=== PATIENT | female | born 1965 | race Hispanic/Latino ===

== ENCOUNTER 2017-10-09 14:43 | Emergency (ER) | payer OTHER ==
[2017-10-09 14:43] VITALS: BMI 19.3
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
--- NOTE | 2017-10-09 16:28 | CT ---
PROCEDURE: CT Cervical Spine without contrast HISTORY: Neck pain COMPARISON: None available. TECHNIQUE: Axial computed tomography images were obtained of the cervical spine without the use of intravenous contrast. Coronal and sagittal reformatted images were created and reviewed. Radiation dose: Total exam DLP = 257 mGy-cm. This CT exam was performed using one or more of the following dose reduction techniques: Automated exposure control, adjustment of the mA and/or kV according to patient size, and/or use of iterative reconstruction technique. FINDINGS: VERTEBRAE: No fracture. Normal alignment. No destructive bony lesion. DISCS/SPINAL CANAL/NEURAL FORAMINA: No significant central canal or neural foraminal stenosis. Discs heights are grossly preserved. PARASPINAL SOFT TISSUES: Unremarkable. OTHER FINDINGS: None. IMPRESSION: Unremarkable CT of the cervical spine.
[2017-10-09] MEDS ORDERED: Morphine 4 mg/ml ISec IM STA (17:16)
[2017-10-09 17:44] VITALS: BP 133/79; PULSE 73; RESP 18; TEMP 98; O2SAT 95
== END 2017-10-09 17:33 | disposition home or self-care (01) ==
LOC: ED 14:43
DX: M54.2 Cervicalgia (principal)
CPT/HCPCS: 72125; 96372; 99283; J1885; J2270

== ENCOUNTER 2017-10-16 10:14 | Emergency (ER) | payer OTHER ==
[2017-10-16 10:14] VITALS: BMI 19.3
[2017-10-16 10:35] VITALS: TEMP 97.6
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
[2017-10-16 14:57] VITALS: BP 127/79; PULSE 76; RESP 17; O2SAT 98
== END 2017-10-16 14:56 | disposition home or self-care (01) ==
LOC: ED 10:14
DX: M54.2 Cervicalgia (principal)
CPT/HCPCS: 96374; 96375; 99284; J1100; J1885; J2060; J2405

== ENCOUNTER 2017-11-26 13:07 | Emergency (ER) | payer MEDICAID, OTHER ==
[2017-11-26 13:07] VITALS: BMI 19.3
[2017-11-26 13:26] VITALS: TEMP 98
[2017-11-26] MEDS ORDERED: HYDROmorphone 1 mg/ml ISec IVP STA ×2 (13:39→14:58)
[2017-11-26] MEDS ORDERED: Sodium Chloride 0.9% 500 ML IV STA (13:41)
[2017-11-26] MEDS ORDERED: Famotidine 20mg/50ml 20 MG/50 ML BAG IVPB STA (13:41)
[2017-11-26] MEDS ORDERED: Dexamethasone 4 mg/1 ml IVP STA (13:42)
[2017-11-26 13:44] VITALS: O2SAT 99
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
[2017-11-26 14:09] LABS: BASO # 0.03 K/mm3 (0.0-2.0); BASO % 0.4 % (0.0-3.0); EOS % 0.5 % (1.5-5.0); GRAN # 5.97 (1.4-6.5); GRAN % 72.5 % (50.0-68.0); HEMOGLOBIN 14.4 g/dL (12.0-16.0); LYMPH # 1.8 (1.2-3.4); LYMPH % 22.1 % (22.0-35.0); MEAN CELL VOLUME 97.5 fl (80.0-105.0); MEAN CORPUSCULAR HEMOGLOBIN 32.4 pg (25.0-35.0); MEAN CORPUSCULAR HGB CONC 33.2 g/dl (31.0-37.0); MEAN PLATELET VOLUME 12.3 fl (7.0-11.0); MONO # 0.4 (0.1-0.6); MONO % 4.5 % (1.0-6.0); RBC 4.45 10^6/uL (3.5-6.1); RED CELL DISTRIBUTION WIDTH 13.7 % (11.5-14.5); WHITE BLOOD COUNT 8.2 10^3/ul (4.5-11.0)
[2017-11-26 14:52] LABS: ALB/GLOB RATIO 1.4 (1.1-1.8); ALBUMIN 3.4 g/dL (3.0-4.8); ALT/SGPT 39 U/L (7-56); AST/SGOT 25 U/L (14-36); BLOOD UREA NITROGEN 17 mg/dL (7-21); GFR AFRICAN-AMERICAN > 60; GFR NON-AFRICAN AMERICAN > 60; LIPASE 13 U/L (23-300)
[2017-11-26 15:04] LABS: TROPONIN I < 0.01 ng/mL
--- NOTE | 2017-11-26 15:48 | CT ---
PROCEDURE: CT Cervical Spine without contrast HISTORY: Severe neck pain COMPARISON: None available. TECHNIQUE: Axial computed tomography images were obtained of the cervical spine without the use of intravenous contrast. Coronal and sagittal reformatted images were created and reviewed. Radiation dose: Total exam DLP = 271.62 mGy-cm. This CT exam was performed using one or more of the following dose reduction techniques: Automated exposure control, adjustment of the mA and/or kV according to patient size, and/or use of iterative reconstruction technique. FINDINGS: VERTEBRAE: There is normal alignment of the cervical vertebral bodies. There is straightening of the cervical spine with loss of normal cervical lordosis. There is no acute fracture or spondylolisthesis. Bone mineralization is normal. The craniocervical junction is normal. The atlantoaxial joint is normal. DISCS/SPINAL CANAL/NEURAL FORAMINA: Please note evaluation of the discs and cord is limited on noncontrast CT examination. Allowing for this: C2-3: Disc osteophyte complex, small central disc protrusion and asymmetric left uncovertebral joint hypertrophy in conjunction with mild left facet arthropathy result in mild left neural foraminal narrowing. No spinal canal stenosis. C3-4: No large disc herniation, neural foraminal or spinal canal stenosis. C4-5: Disc osteophyte complex without neural foraminal or spinal canal stenosis. Moderate right facet arthropathy. C5-6: Large broad-based central and right posterolateral disc extrusion indent the ventral cord with mild spinal canal stenosis. Also noted is moderate bilateral neural foraminal narrowing. C6-7: No large disc herniation, neural foraminal or spinal canal stenosis. PARASPINAL SOFT TISSUES: Unremarkable. OTHER FINDINGS: None. IMPRESSION: Mild multilevel degenerative disc disease worse at C5-6 with a large broad-based central and right posterolateral disc extrusion which indents the ventral cord with resultant mild spinal canal stenosis. Also noted is moderate bilateral neural foraminal narrowing. Please note MRI of the cervical spine is more sensitive for evaluation of discs and cord.
[2017-11-26 16:02] VITALS: RESP 18
[2017-11-26 16:18] LABS: URINE BILIRUBIN NEGATIVE (NEGATIVE); URINE BLOOD SMALL (NEGATIVE); URINE GLUCOSE (UA) NEGATIVE (NEGATIVE); URINE LEUKOCYTE ESTERASE NEGATIVE Leu/uL (NEGATIVE); URINE NITRATE NEGATIVE (NEGATIVE); URINE PROTEIN NEGATIVE mg/dL (<30 mg/dL); URINE UROBILINOGEN 0.2 E.U./dL (<1 E.U./dL)
[2017-11-26 16:25] LABS: URINE APPEARANCE SL CLOUDY (CLEAR); URINE COLOR YELLOW (YELLOW)
[2017-11-26 16:40] LABS: URINE RBC 0 - 2 /hpf (0-2); URINE WBC 0 - 2 /hpf (0-6)
[2017-11-26 16:56] LABS: BARBITURATES, UR NEGATIVE (NEGATIVE); BENZODIAZEPINES, UR POSITIVE (NEGATIVE); OPIATES, UR POSITIVE (NEGATIVE); PHENCYCLIDINE, UR NEGATIVE (NEGATIVE)
[2017-11-26 17:34] VITALS: BP 132/67; PULSE 67
--- NOTE | 2017-11-27 09:37 | CARD ---
APPROVED REPORT EKG Measurement Heart [id number] <Conclusion> Normal sinus rhythm Normal ECG
== END 2017-11-26 17:46 | disposition home or self-care (01) ==
LOC: ED 13:07
DX: G89.21 Chronic pain due to trauma (principal); M54.2 Cervicalgia; M50.90 Cervical disc disorder, unspecified, unspecified cervical region; F17.210 Nicotine dependence, cigarettes, uncomplicated
CPT/HCPCS: 72125; 80053; 81001; 83690; 84484; 84702; 85025; 93005; 96365; 96375; 96376; 99285; G0480; J1100; J1170; J1885; J2405; J7040

== ENCOUNTER 2018-02-08 12:17 | Emergency (ER) | payer MEDICAID ==
[2018-02-08 12:36] VITALS: BMI 21.9
[2018-02-08 12:39] VITALS: TEMP 98.4
[2018-02-08] MEDS ORDERED: Morphine 2 mg/2 mL syringe IM STA (13:28)
[2018-02-08] MEDS ORDERED: HYDROmorphone 1 mg/ml ISec IM STA (13:28)
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
[2018-02-08] MEDS ORDERED: Morphine 2 mg/ml ISec IM STA (14:20)
[2018-02-08 14:54] VITALS: RESP 17; O2SAT 98
[2018-02-08 15:17] VITALS: BP 123/75; PULSE 62
== END 2018-02-08 14:55 | disposition home or self-care (01) ==
LOC: ED 12:17
DX: M54.2 Cervicalgia (principal); M54.9 Dorsalgia, unspecified; F17.210 Nicotine dependence, cigarettes, uncomplicated
CPT/HCPCS: 96372; 99284; J1170; J1885; J2270

== ENCOUNTER 2018-02-18 16:20 | Emergency (ER) | payer MEDICAID ==
[2018-02-18 16:20] VITALS: BMI 21.9
[2018-02-18 16:30] VITALS: O2SAT 97
[2018-02-18] MEDS ORDERED: Morphine 2 mg/ml ISec IM STA (16:58)
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
[2018-02-18] MEDS ORDERED: Morphine 2 mg/2 mL syringe IM STA (17:03)
[2018-02-18 18:17] VITALS: BP 144/74; PULSE 64; RESP 20; TEMP 97.4
== END 2018-02-18 18:09 | disposition home or self-care (01) ==
LOC: ED 16:20
DX: G89.29 Other chronic pain (principal); M54.2 Cervicalgia; F17.210 Nicotine dependence, cigarettes, uncomplicated
CPT/HCPCS: 96372; 99282; J1885; J2270

== ENCOUNTER 2018-03-10 09:50 | Emergency (ER) | payer MEDICAID ==
[2018-03-10 11:42] VITALS: PULSE 67; RESP 17; TEMP 98; O2SAT 99
[2018-03-10 11:44] VITALS: BMI 18.5
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
[2018-03-10 13:05] VITALS: BP 143/89
== END 2018-03-10 13:02 | disposition home or self-care (01) ==
LOC: ED 09:50
DX: G89.29 Other chronic pain (principal)
CPT/HCPCS: 96372; 99282; J1885; J2270

== ENCOUNTER 2018-04-03 09:12 | Emergency (ER) | payer MEDICAID ==
[2018-04-03 09:13] VITALS: BMI 18.5
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
[2018-04-03 11:59] VITALS: TEMP 97.8
[2018-04-03 12:16] VITALS: BP 123/52; PULSE 61; RESP 19; O2SAT 99
== END 2018-04-03 12:11 | disposition home or self-care (01) ==
LOC: ED 09:12
DX: F11.10 Opioid abuse, uncomplicated (principal); M54.2 Cervicalgia; F17.210 Nicotine dependence, cigarettes, uncomplicated; F19.10 Other psychoactive substance abuse, uncomplicated
CPT/HCPCS: 96372; 99285; J1885

== ENCOUNTER 2018-09-02 11:22 | Emergency (ER) | payer MEDICAID ==
[2018-09-02 11:42] VITALS: BP 141/95; PULSE 77; RESP 18; TEMP 97.9; O2SAT 97; BMI 17.9
[2018-09-02] MEDS ORDERED: Sodium Chloride 0.9% 1,000 ML IV STA (11:51)
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
[2018-09-02 12:21] LABS: BASO # 0.02 K/mm3 (0.0-2.0); BASO % 0.2 % (0.0-3.0); EOS % 0.4 % (1.5-5.0); GRAN # 6.1 (1.4-6.5); GRAN % 75.3 % (50.0-68.0); HEMOGLOBIN 14.2 g/dL (12.0-16.0); LYMPH # 1.7 (1.2-3.4); LYMPH % 20.5 % (22.0-35.0); MEAN CELL VOLUME 98.1 fl (80.0-105.0); MEAN CORPUSCULAR HEMOGLOBIN 32.9 pg (25.0-35.0); MEAN CORPUSCULAR HGB CONC 33.5 g/dl (31.0-37.0); MEAN PLATELET VOLUME 10.8 fl (7.0-11.0); MONO # 0.3 (0.1-0.6); MONO % 3.6 % (1.0-6.0); RBC 4.32 10^6/uL (3.5-6.1); WHITE BLOOD COUNT 8.1 10^3/uL (4.5-11.0)
[2018-09-02 12:30] LABS: ALB/GLOB RATIO 1.4 (1.1-1.8); ALT/SGPT 47 U/L (7-56); AST/SGOT 28 U/L (14-36); BLOOD UREA NITROGEN 14 mg/dL (7-21); CALCIUM 9.1 mg/dL (8.4-10.5); GFR NON-AFRICAN AMERICAN > 60; LIPASE 13 U/L (23-300)
--- NOTE | 2018-09-02 16:17 | CARD ---
APPROVED REPORT Date of service: 09/02/2018 EKG Measurement Heart [id number] <Conclusion> Normal sinus rhythm Normal ECG
== END 2018-09-02 14:36 | disposition home or self-care (01) ==
LOC: ED 11:22
DX: M54.2 Cervicalgia (principal); G89.29 Other chronic pain; R11.10 Vomiting, unspecified
CPT/HCPCS: 80053; 83690; 83735; 85025; 93005; 96374; 96375; 96376; 99285; J1885; J2405; J7030